=== PATIENT | male | born 1945 | race Caucasian/White ===

== ENCOUNTER → 2019-12-14 | Outpatient (CLI) | payer OTHER ==
[~2019-12-14] MED LIST: MULTAQ400 MG PO
== END ==
LOC: SJCVC 09:29
PROVIDERS: ATTEND Internal Medicine Cardiovascular Disease
DX: R94.31 Abnormal electrocardiogram [ECG] [EKG] (principal); I48.91 Unspecified atrial fibrillation; I10 Essential (primary) hypertension; D68.59 Other primary thrombophilia; I34.0 Nonrheumatic mitral (valve) insufficiency

== ENCOUNTER → 2020-07-18 | Outpatient (CLI) | payer OTHER | LOC: SJCVCIMAG 09:59 | PROVIDERS: ATTEND Internal Medicine Cardiovascular Disease | DX: I34.0 Nonrheumatic mitral (valve) insufficiency (principal); I49.3 Ventricular premature depolarization; I48.91 Unspecified atrial fibrillation; Z79.899 Other long term (current) drug therapy ==